=== PATIENT | female | born 1945 | race Caucasian/White ===

== ENCOUNTER 2016-12-03 11:51 | Emergency (ER) | payer MEDICARE ==
[~2016-12-03 11:51] MED LIST: ABILIFY2 MG PO; ASPIRIN325 MG PO; FERROUS GLUCON324 M2 PO; LEXAPRO20 MG PO; LIPITOR 10MG TA10 MG PO; LOVAZA1 GM PO; MELATIN3 MG PO; MICRO-K10 MEQ PO; NEOSPORIN15 GM TOP; PRILOSEC20 MG PO; REFRESH CLASSI1 EACH OU; SUPER B COMPLE150 MG PO; TUMS500 MG PO; VOLTAREN100 GM TOP; ZIAC 5-6.25 MG1 EACH PO
[2016-12-03 12:44] LABS: BASOPHIL 0.3 % (0-2); EOSINOPHIL 1.9 % (0-7); HCT 38.9 % (37.0-47.0); HGB 12.9 g/dl (12.5-16.0); LYMPHOCYTE 25.7 % (15-48); MCH 30.1 pg (25.0-31.0); MCHC 33.2 g/dL (32.0-36.0); MCV 90.9 fL (78.0-100.0); MONOCYTE 7.2 % (0-12); MPV 10.1 fL (6.0-9.5); NEUTROPHIL 64.9 % (41-80); PLT 207 K/uL (150-400); RBC 4.28 M/uL (4.20-5.40); RDW 14.2 % (11.5-14.0)
[2016-12-03 12:55] LABS: BILIRUBIN NEGATIVE (NEGATIVE); BLOOD NEGATIVE Ery/uL (NEGATIVE); CLARITY CLEAR (CLEAR); COLOR YELLOW (YELLOW); GLUCOSE (U) NORMAL (NORMAL); KETONE (U) NEGATIVE (NEGATIVE); LEUKOCYTES NEGATIVE Leu/uL (NEGATIVE); NITRITE NEGATIVE (NEGATIVE); PROTEIN TRACE (LOW) mg/dL (NEGATIVE); UROBILINOGEN 0.2 mg/dL (0.2-1.0)
[2016-12-03 12:56] LABS: INR 1.06 (0.9-1.2); PROTHROMBIN TIME 13.4 SECONDS (11.7-14.0); PTT 25.9 SECONDS (23.2-31.4)
[2016-12-03 12:58] LABS: MUCOUS TRACE; URINARY WBC RARE
[2016-12-03 13:03] LABS: ALBUMIN 4.2 g/dL (3.4-4.8); BILIRUBIN - TOTAL 0.2 mg/dL (0.1-1.0); CREATININE 0.9 mg/dL (0.5-1.0); GLOBULIN (CALCULATION) 2.8 g/dL (2.2-4.2); POTASSIUM 3.8 mmol/L (3.5-5.1)
[2016-12-03 13:04] LABS: CKMB 1.74 ng/mL (0.97-4.94); MYOGLOBIN 108 ng/mL (26-65); TROPONIN T < 0.010 ng/mL
== END 2016-12-03 14:08 | disposition home or self-care (01) ==
LOC: FER 11:51
PROVIDERS: Emergency Medicine
DX: R55 Syncope and collapse (principal); F03.90 Unspecified dementia, unspecified severity, without behavioral disturbance, psychotic disturbance, mood disturbance, and anxiety; I25.10 Atherosclerotic heart disease of native coronary artery without angina pectoris; N18.9 Chronic kidney disease, unspecified; Z86.69 Personal history of other diseases of the nervous system and sense organs; Z88.1 Allergy status to other antibiotic agents; Z88.5 Allergy status to narcotic agent; Z88.6 Allergy status to analgesic agent; Z91.040 Latex allergy status; Z91.09 Other allergy status, other than to drugs and biological substances; Z79.82 Long term (current) use of aspirin; Z79.899 Other long term (current) drug therapy
CPT/HCPCS: 36415; 70450; 71010; 72170; 80053; 80061; 81001; 82550; 82553; 83874; 84484; 85025; 85610; 85730; 93005